=== PATIENT | male | born 2000 | race Two or more races ===

== ENCOUNTER 2021-05-04 10:50 | Emergency (ER) | payer OTHER ==
[~2021-05-04] VITALS: Ht 188 cm; Wt 66.2 kg
== END 2021-05-04 14:00 | disposition home or self-care (01) ==
LOC: ER 10:50
DX: S01.521A Laceration with foreign body of lip, initial encounter (principal); W51.XXXA Accidental striking against or bumped into by another person, initial encounter; Y93.67 Activity, basketball; Y92.328 Other athletic field as the place of occurrence of the external cause

== ENCOUNTER 2021-11-26 12:03 | Emergency (ER) | payer OTHER ==
[~2021-11-26] VITALS: Ht 188 cm; Wt 66.2 kg
[2021-11-26] MEDS ORDERED: INTESTINEX680 M1 PO (16:13)
[2021-11-26] MEDS ORDERED: PEPCID AC20 MG PO (16:13)
== END 2021-11-26 16:23 | disposition home or self-care (01) ==
LOC: ER 12:03
DX: R19.7 Diarrhea, unspecified (principal)